=== PATIENT | female | born 1995 | race Caucasian/White ===

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

== ENCOUNTER 2017-10-14 05:43 | Day surgery (SDC) | payer MEDICAID ==
[2017-10-11 10:02] LABS: HEMATOCRIT 39.3 % (36.0-48.0); HEMOGLOBIN 12.9 g/dL (12-16); MCH 27.8 pg (26.0-34.0); MCHC 32.8 g/dL (31.0-37.0); MCV 84.7 fL (80.0-100.0); MEAN PLATELET VOLUME 8.9 fL (7.4-10.4); RBC 4.64 10x6/uL (4.00-5.40); RDW 14.8 % (11.5-14.5); WBC 13.8 10x3/uL (4.8-10.8)
[~2017-10-14] VITALS: Ht 170.2 cm; Wt 108.9 kg
--- NOTE | ~2017-10-14 | OP ---
PATIENT NAME: DAMIR CORDON MEDICAL RECORD: [id number] :89 LOCATION:[facility] ADMISSION DATE: SURGEON: JOSSIE BECKER MD DATE OF OPERATION: 10/14/2017 PREOPERATIVE DIAGNOSIS: Acromioclavicular arthritis. POSTOPERATIVE DIAGNOSES: Impingement syndrome with acromioclavicular arthritis status post nonhealed fracture. PROCEDURES: 1. Arthroscopic distal clavicle excision done through separate incision with removal of nonhealed bony fragment, 1 cm in total. 2. Arthroscopic subacromial decompression. SURGEON: Jossie Becker MD ANESTHESIA: General. INTRAOPERATIVE COMPLICATIONS: None. SUMMARY OF PATHOLOGIC FINDINGS: Upon entering the subacromial space, the patient did have excoriation of the coracoacromial ligament as well as a very arthritic distal clavicle for such a young age, likely associated with her recent trauma, also found was the bone fragment as seen on x-ray. OPERATIVE SUMMARY IN DETAIL: After obtaining the appropriate preoperative orthopedic surgery consent as well as anesthetic consultation, evaluation and clearance, the patient was brought to the operating room and placed on the operating table in supine position. After adequate general laryngeal mask airway was administered, the patient was placed in a left lateral decubitus position. All pressure points were well padded to include down leg peroneal pad as well as axillary roll. The patient's right upper extremity and shoulder were then prepped and draped in a routine sterile fashion. She was held securely to the operative table using the vacuum pack suction system. The prep and drape of the right upper extremity was then held in the Arthrex traction boom at 30 degrees of forward flexion, 30 degrees of abduction with 10 pounds of traction laterally. Arthroscopy was established in the glenohumeral joint from a posterior portal. Diagnostic arthroscopy of the glenohumeral joint was pristine, no evidence of rotator cuff tearing, labral tearing or other pathology. Arthroscopy was then established in the subacromial space. Substantial bursitis along with excoriation of the coracoacromial ligament was noted. The Maskell tissue ablation system was utilized to denude the undersurface of the acromion of all soft tissue elements and released the coracoacromial ligament. A 5-0 barrel bur was used to perform acromioplasty at the level of acromioclavicular joint. At this point, the inferior osteophytes of the distal clavicle were taken down and then through a separate anterior portal under direct arthroscopic visualization, the entire distal clavicle was taken out for 1 cm being sure to take out the small bony fragment. Having completed this, the residual bursa was taken down superiorly, anteriorly, laterally and posteriorly. At this point, arthroscopy portals were closed in routine interrupted fashion using 4-0 Prolene. Sterile dressings were applied. The patient was awakened and taken to recovery room in stable condition. All final needle and sponge counts were correct. OPERATIVE REPORT [id number] DAMIR CORDON TRANSINT:[id number] Voice Confirmation ID: [id number] DOCUMENT ID: [id number] ROSITA PEDERSEN, JOSSIE RUIZ at 1212 CC: [id number] DICTATION DATE: 10/14/17 1046 [employer] OPERATOR: 10/14/17 1102 [facility] [address] [place] [address]
[2017-10-14 08:27] VITALS: BP 140/73; Ht 170.2 cm; Wt 108.9 kg
[2017-10-14 08:43] LABS: HCG URINE NEGATIVE (NEGATIVE)
[2017-10-14] MEDS ORDERED: HYDROCODONE-APA1 TAB PO (10:34)
== END 2017-10-14 12:40 | disposition home or self-care (01) ==
LOC: D.OPS 05:43 → D.PAN 13:00 → D.OPS 13:00
PROVIDERS: Anesthesiology; Orthopaedic Surgery
DX: S42.021A Displaced fracture of shaft of right clavicle, initial encounter for closed fracture (principal); J45.909 Unspecified asthma, uncomplicated; I10 Essential (primary) hypertension; M19.011 Primary osteoarthritis, right shoulder; M75.41 Impingement syndrome of right shoulder; Z01.812 Encounter for preprocedural laboratory examination

== ENCOUNTER 2017-11-28 07:17 | Emergency (ER) | payer MEDICAID ==
[2017-10-14 08:27] VITALS: BMI 37.7
[~2017-11-28 07:17] MED LIST changes: +HYDROCODONE-APA1 TAB PO
== END 2017-11-28 08:02 | disposition home or self-care (01) ==
LOC: D.ER 07:17
DX: M54.9 Dorsalgia, unspecified (principal)

== ENCOUNTER 2018-10-08 19:23 | Emergency (ER) | payer SELFPAY ==
[~2018-10-08] VITALS: Ht 170.2 cm; Wt 113.6 kg
[2018-10-08 19:32] VITALS: Ht 170.2 cm; Wt 113.6 kg
[2018-10-08 20:12] LABS: BASOPHILS 0.1 % (0-2); EOSINOPHILS 0.6 % (0-7); HEMATOCRIT 37.8 % (36.0-48.0); HEMOGLOBIN 12.5 g/dL (12-16); IMMATURE GRANULOCYTES 0.4 % (0-5); MCH 28.9 pg (26.0-34.0); MCHC 33.1 g/dL (31.0-37.0); MCV 87.3 fL (80.0-100.0); MEAN PLATELET VOLUME 9.4 fL (7.4-10.4); MONOCYTES 9.8 % (2-11); NEUTROPHILS 68.1 % (40-80); PLATELET COUNT 302 10x3/uL (130-400); RBC 4.33 10x6/uL (4.00-5.40); RDW 13.7 % (11.5-14.5); WBC 8.2 10x3/uL (4.8-10.8)
[2018-10-08 20:25] LABS: APTT 28.7 SECONDS (22.8-39.4); INR 1.06 (0.85-1.17); PROTIME 13.3 SECONDS (11.6-15.0)
[2018-10-08 20:41] LABS: ALBUMIN 3.7 g/dL (3.4-5.0); ALKALINE PHOSPHATASE 84 U/L (46-116); ALT (SGPT) 24 U/L (10-68); BILIRUBIN - TOTAL 0.56 mg/dL (0.2-1.3); CALC OSMOLALITY 275 mosm/kg (275-300); CALCIUM 8.5 mg/dL (8.5-10.1); CARBON DIOXIDE 22.2 mmol/L (21.0-32.0); CHLORIDE - SERUM 102 mmol/L (98-107); CREATININE - SERUM 0.8 mg/dL (0.6-1.3); GLUCOSE 93 mg/dL (74-106); POTASSIUM - SERUM 3.4 mmol/L (3.5-5.1); PROTEIN - SERUM 7.8 g/dL (6.4-8.2); SODIUM 138 mmol/L (136-145); UREA NITROGEN 12 mg/dL (7-18); eGFR NON AFRICAN AMERICAN > 90 mL/min (90-120)
[2018-10-08 20:52] LABS: CKMB 0.8 U/L (0.0-3.6); CREATINE KINASE 149 UL (21-215); MAGNESIUM - SERUM 1.8 mg/dL (1.8-2.4); TROPONIN-I < 0.017 ng/mL (0.000-0.060)
[2018-10-08 23:06] VITALS: BP 132/86
== END 2018-10-08 23:13 | disposition home or self-care (01) ==
LOC: D.ER 19:23
PROVIDERS: Family Medicine
DX: R53.81 Other malaise (principal); R03.0 Elevated blood-pressure reading, without diagnosis of hypertension; R00.0 Tachycardia, unspecified; R51 Headache; F17.200 Nicotine dependence, unspecified, uncomplicated